=== PATIENT | female | born 1970 | race African-American/Black ===

== ENCOUNTER 2017-04-19 09:12 | Emergency (ER) | payer SELFPAY ==
--- NOTE | 2017-04-19 09:34 | RAD ---
RADIOGRAPH CHEST 2 VIEWS: HISTORY: 46-year-old female with cough. FINDINGS: There is no air space density, pulmonary edema, pleural effusion, pneumothorax, or cardiomegaly. IMPRESSION: No acute cardiopulmonary findings. clay POS: SRINIVAS
[2017-04-19] MEDS ORDERED: Dexamethasone 4 mg/ml Vial ONE (10:21)
[2017-04-19] MEDS ORDERED: Ondansetron ODT 4 MG TAB ONE (10:21)
== END 2017-04-19 10:35 | disposition home or self-care (01) ==
LOC: ERS 09:12
DX: J06.9 Acute upper respiratory infection, unspecified (principal); M06.9 Rheumatoid arthritis, unspecified
CPT/HCPCS: 71046; 87804; J1100; Q0162

== ENCOUNTER 2017-11-21 15:19 | Emergency (ER) | payer SELFPAY ==
[2017-11-21] MEDS ORDERED: Ketorolac Tromethamine 60 MG/2 ML VIAL ONE (16:46)
[2017-11-21] MEDS ORDERED: predniSONE 20 MG TAB ONE (16:46)
[2017-11-21] MEDS ORDERED: HYDROcodone/Acetaminophen 5/325 mg Tablet ONE (16:46)
[2017-11-21 17:26] LABS: #Monocytes 0.6 thou/uL (0.11-0.59); #Neutrophils 4.4 thou/uL (1.40-6.50); %Basophils 0.6 % (0.0-1.0); %Eosinophils 0.4 % (0.0-10.0); %Lymphocytes 28.2 % (21.0-51.0); %Monocytes 8.3 % (0.0-10.0); %Neutrophils 62.4 % (42.0-75.0); Hemoglobin 9.2 g/dL (12.0-16.0); Mean Corpuscular HGB CONC 32.2 g/dL (32.0-36.0); Mean Corpuscular Hemoglobin 25.4 pg (27.0-31.0); Mean Corpuscular Volume 78.8 fL (78.0-98.0); Mean Platelet Volume 7.3 fL (7.4-10.4); Platelet Count 355 thou/uL (130-400); RBC Distribution Width 16.9 % (11.5-14.5); Red Blood Cell (RBC) Count 3.63 mill/uL (4.20-5.40)
[2017-11-21 17:49] LABS: ALT (SGPT) 8 U/L (8-55); AST (SGOT) 14 U/L (5-34); Alkaline Phosphatase 96 U/L (40-150); Anion Gap 13 mmol/L (10-20); BUN (Urea Nitrogen) 9 mg/dL (7.0-18.7); Bilirubin, Total 0.4 mg/dL (0.2-1.2); Calc. Creatinine Clearance 0 mL/min (70-130); Calcium 9.3 mg/dL (7.8-10.44); Carbon Dioxide 25 mmol/L (22-29); Chloride 106 mmol/L (98-107); Estimated GFR-MDRD Greater than 90; Globulin 3.7 g/dL (2.4-3.5); Glucose 95 mg/dL (70-105); Potassium 3.8 mmol/L (3.5-5.1); Protein, Total 7.7 g/dL (6.0-8.3); Sodium 140 mmol/L (136-145)
== END 2017-11-21 15:45 | disposition home or self-care (01) ==
LOC: ERS 15:19
DX: M06.9 Rheumatoid arthritis, unspecified (principal)
CPT/HCPCS: 36415; 80053; 85025; 96372; J1885; J7506

== ENCOUNTER 2018-02-05 08:50 | Emergency (ER) | payer SELFPAY ==
[2018-02-05 09:47] LABS: Bilirubin Negative (Negative); Blood, Urine Moderate (Negative); Clarity CLEAR (Clear); Glucose, Urine (Dipstick) Negative (Negative); Leukocyte Negative (Negative); Nitrite Negative (Negative); Protein, Urine (Dipstick) Negative (Neg-Trace); Specific Gravity, Urine 1.021 (1.002-1.036)
[2018-02-05 09:50] LABS: Bacteria/HPF None Seen HPF (None Seen); Hyaline Casts/LPF 0-3 HYALINE CAST LPF (0-3 Hyaline); Pathc Cast-AUWi Flag 0.43 (0-2.49); Squamous Epithelial 0-3 HPF (0-3); WBC/HPF 0-3 HPF (0-3)
[2018-02-05 09:58] LABS: Pregnancy Test - Urine (BHCG) Negative (Negative); Pregu Control Background? CLEAR/WHITE (CLR/WHITE); Pregu Control Bar Appear? YES (CONTROL BAR); Specific Gravity 1.021 (1.002-1.036)
--- NOTE | 2018-02-05 11:53 | CT ---
ABDOMEN AND PELVIS CT SCAN WITHOUT IV CONTRAST: HISTORY: A 47-year-old female with a history of right flank pain without injury. FINDINGS: There are two nodules in the left lower lobe. One of these is pleural-based, measuring 0.7 cm. The other one is subpleural and contains a tiny central area of calcification, measuring 0.6 cm. The ana lilia er, gallbladder, pancreas, spleen, and adrenal glands are unremarkable, as evaluated without IV contr ast. No evidence for renal calculus or acute obstruction. Multiple calcified phleboliths are not ed in the pelvis. No CT evidence for acute appendicitis. No abscess, adenopathy, or abnormal fluid collection. IMPRESSION: Two pulmonary nodules in the left lower lobe. The largest is pleural-based, measuring 0.7 cm. The s maller one, 0.6 cm, contains a tiny central calcification. Consideration for nonemergent follow-up f ull chest CT scan might be considered. Depending upon the results of that, follow-up imaging of thes e nodules would be recommended. No evidence for other significant acute process. CODE LN POS: SRINIVAS
== END 2018-02-05 10:52 | disposition home or self-care (01) ==
LOC: ERS 08:50
DX: M54.5 Low back pain (principal); R91.1 Solitary pulmonary nodule; Z79.899 Other long term (current) drug therapy
CPT/HCPCS: 74176; 81003; 81015; 81025

== ENCOUNTER 2018-10-13 14:54 | Outpatient (CLI) | payer BC ==
--- NOTE | 2018-10-13 17:33 | MMO ---
Bilateral MAMMO Bilat Screen [facility]. CLINICAL HISTORY: Patient is 48 years old and is seen for screening. The patient has no family history of breast cancer. The patient has no personal history of cancer. VIEWS: The views performed were: bilateral craniocaudal with tomosynthesis and bilateral mediolateral oblique with tomosynthesis. FILMS COMPARED: The present examination has been compared to a prior imaging study performed at [facility] on 08/16/2011. MAMMOGRAM FINDINGS: The breasts are almost entirely fat. There are no suspicious masses, suspicious calcifications, or new areas of architectural distortion. IMPRESSION: THERE IS NO MAMMOGRAPHIC EVIDENCE OF MALIGNANCY. A ROUTINE FOLLOW-UP MAMMOGRAM IN 1 YEAR IS RECOMMENDED. THE RESULTS OF THIS EXAM WERE SENT TO THE PATIENT. ACR BI-RADS Category 1 - Negative MAMMOGRAPHY NOTE: 1. A negative mammogram report should not delay a biopsy if a dominant of clinically suspicious mass is present. 2. Approximately 10% to 15% of breast cancers are not detected by mammography. 3. Adenosis and dense breasts may obscure an underlying neoplasm.
== END 2018-10-13 14:55 | disposition home or self-care (01) ==
LOC: BICMAMMO 14:54
PROVIDERS: ATTEND Family Medicine
DX: Z12.31 Encounter for screening mammogram for malignant neoplasm of breast (principal)
CPT/HCPCS: 77063; 77067

== ENCOUNTER 2020-07-04 14:31 | Outpatient (CLI) | payer BC | END 2020-07-04 14:32 | disposition home or self-care (01) | LOC: BICMAMMO 14:31 | PROVIDERS: ATTEND Nurse Practitioner Family | DX: Z12.31 Encounter for screening mammogram for malignant neoplasm of breast (principal) | CPT/HCPCS: 77063; 77067 ==

== ENCOUNTER 2020-12-05 10:00 | Emergency (ER) | payer BC ==
[2020-12-05 11:25] LABS: Hemoglobin 12.3 g/dL (12.0-16.0); Mean Corpuscular HGB CONC 31.6 g/dL (32.0-36.0); Mean Corpuscular Volume 85.5 fL (78.0-98.0); Mean Platelet Volume 9.7 fL (7.4-10.4); Platelet Count 96 thou/uL (130-400); RBC Distribution Width 14.5 % (11.5-14.5); Red Blood Cell (RBC) Count 4.54 mill/uL (4.20-5.40); White Blood Cell (WBC) Count 4.3 thou/uL (4.8-10.8)
[2020-12-05 11:45] LABS: ALT (SGPT) 26 U/L (8-55); AST (SGOT) 55 U/L (5-34); Albumin 4.1 g/dL (3.5-5.0); Alkaline Phosphatase 117 U/L (40-110); Anion Gap 17 mmol/L (10-20); BUN (Urea Nitrogen) 13 mg/dL (7.0-18.7); Bilirubin, Total 0.6 mg/dL (0.2-1.2); Calc. Creatinine Clearance 0 mL/min (70-130); Calcium 9.6 mg/dL (7.8-10.44); Carbon Dioxide 21 mmol/L (22-29); Chloride 103 mmol/L (98-107); Globulin 4.9 g/dL (2.4-3.5); Glucose 96 mg/dL (70-105); Potassium 3.3 mmol/L (3.5-5.1); Sodium 138 mmol/L (136-145)
[2020-12-05 12:05] LABS: #Monocytes 0.5 thou/uL (0.11-0.59); #Neutrophils 2.8 thou/uL (1.40-6.50); %Basophils 0.3 % (0.0-1.0); %Eosinophils 0.1 % (0.0-10.0); %Lymphocytes 23.5 % (21.0-51.0); %Monocytes 11.1 % (0.0-10.0); Platelet Morphology Comment Appears Decreased; RBC Morphology Normal
== END 2020-12-05 12:40 | disposition home or self-care (01) ==
LOC: ERS 10:00
DX: R07.89 Other chest pain (principal); M06.9 Rheumatoid arthritis, unspecified
CPT/HCPCS: 36415; 71045; 80053; 84484; 85025; 93005; 94760

== ENCOUNTER 2020-12-06 16:38 | Emergency (ER) | payer BC ==
[2020-12-06] MEDS ORDERED: Acetaminophen 500 MG TAB ONE (17:49)
[2020-12-06] MEDS ORDERED: Ondansetron ODT 4 MG TAB ONE (18:53)
[2020-12-06] MEDS ORDERED: Ketorolac Tromethamine 30 MG/ML VIAL ONE ×3 (18:53)
[2020-12-06 22:04] LABS: SARS-CoV-2 NAA Rapid Test DETECTED (NotDetected)
== END 2020-12-06 20:18 | disposition home or self-care (01) ==
LOC: ERS 16:38
DX: U07.1 COVID-19 (principal); M06.9 Rheumatoid arthritis, unspecified
CPT/HCPCS: 0240U; 96372; 99283; J1885; Q0162